=== PATIENT | female | born 1955 | race Hispanic/Latino ===

== ENCOUNTER 2018-10-20 00:49 | Inpatient (IN) | payer MEDICARE ==
[~2018-10-20] VITALS: Ht 152.4 cm; Wt 92.5 kg
[~2018-10-20 00:49] MED LIST: AMIO200T5 PO; ASPI-1005 PO; LISI-613 PO; METO50TA18 PO; RIVA20TA PO; ROSU10TA22 GT
[2018-10-20] MEDS ORDERED: ASPIRIN 325 MG TABLET ONE (01:00)
[2018-10-20 01:21] LABS: BASOPHILS % (AUTO) 0.9 % (0.0-5.0); EOSINOPHILS % (AUTO) 2.3 % (0.0-8.0); HEMATOCRIT 33.6 % (36-48); LYMPHOCYTES % (AUTO) 41.2 % (21.0-51.0); MEAN CORPUSCULAR HEMOGLOBIN 29.8 pg (27.0-33.0); MEAN CORPUSCULAR HGB CONC 33.8 g/dL (32.0-36.0); MEAN CORPUSCULAR VOLUME 87.9 fL (79-99); MONOCYTES % (AUTO) 7.9 % (3.0-13.0); NEUTROPHILS % (AUTO) 47.7 % (40.0-77.0); NUCLEATED RED BLOOD CELLS 0.1 % (0.0-0.19); PLATELET COUNT (AUTO) 186 K/uL (130-400); RED BLOOD CELL COUNT(AUTO) 3.82 MIL/uL (4.00-5.50); RED CELL DISTRIBUTION WIDTH 14.4 % (11.0-15.5); WHITE BLOOD COUNT (AUTO) 4.5 K/uL (4.8-10.8)
[2018-10-20 01:39] LABS: CREATININE 1.5 mg/dL (0.5-1.5); POTASSIUM 3.6 mmol/L (3.5-5.1)
[2018-10-20 01:40] LABS: ALBUMIN 3.5 g/dL (3.5-5.0); BILIRUBIN,TOTAL 0.6 mg/dL (0.2-1.0); TOTAL PROTEIN, SERUM 6.7 g/dL (6.0-8.3)
[2018-10-20] MEDS ORDERED: NITROGLYCERIN 1GM/1 INCH PACKET TD ONE (03:00)
[2018-10-20] MEDS ORDERED: MORPHINE SULFATE 4 MG/1ML SYG IV PRN (04:00)
[2018-10-20] MEDS ORDERED: ONDANSETRON HCL 4 MG/2 ML VIAL IV PRN (04:00)
[2018-10-20] MEDS ORDERED: MORPHINE SULFATE 2 MG/ML 1ML SYG IV PRN (04:00)
[2018-10-20] MEDS ORDERED: ACETAMINOPHEN 325 MG TAB PO PRN (04:00)
[2018-10-20] MEDS: NITROGLYCERIN 1GM/1 INCH PACKET TD SCH ×3 (04:00→20:00)
[2018-10-20] MEDS ORDERED: METOPROLOL TARTRATE 25 MG TAB PO SCH (06:00)
[2018-10-20 06:09] LABS: INR 1.15 (0.85-1.15); PARTIAL THROMBOPLASTIN TIME 30.3 SEC (26.3-35.5)
[2018-10-20] MEDS ORDERED: METOPROLOL TARTRATE 25 MG TAB ONE (06:23)
[2018-10-20] MEDS ORDERED: ASPIRIN 325 MG TABLET PO SCH (09:00)
[2018-10-20] MEDS ORDERED: ENOXAPARIN SODIUM 30 MG/0.3 ML SQ SCH (09:00)
[2018-10-20 10:07] VITALS: BP 159/106
[2018-10-20] MEDS ORDERED: ENOXAPARIN SODIUM 30 MG/0.3 ML SQ ONE (10:07)
[2018-10-20] MEDS ORDERED: ONDA8TAB11 PO (11:09)
[2018-10-20] MEDS ORDERED: METF-444 PO (11:09)
[2018-10-20] MEDS ORDERED: QUET100T PO (11:09)
[2018-10-20] MEDS ORDERED: BUPR-47 PO (11:09)
[2018-10-20] MEDS ORDERED: METO50TA18 PO (11:09)
[2018-10-20] MEDS ORDERED: MECL12.585 PO (11:09)
[2018-10-20 12:02] VITALS: BP 166/77
[2018-10-20] MEDS: AMLODIPINE BESYLATE 2.5 MG TAB PO SCH (13:00)
[2018-10-20] MEDS: AMIODARONE HCL 200 MG TABLET PO SCH (13:26)
[2018-10-20] MEDS: LISINOPRIL 20 MG TABLET PO SCH (13:27)
[2018-10-20] MEDS: ACETAMINOPHEN 325 MG TAB PO PRN (13:28)
[2018-10-20] MEDS: FUROSEMIDE 10 MG/ML 2ML VIAL IV SCH (13:28)
[2018-10-20] MEDS: FAMOTIDINE/PF 20 MG/2 ML VIAL IV SCH ×2 (13:28→20:08)
[2018-10-20 15:19] VITALS: BP 123/56
--- NOTE | 2018-10-20 16:00 | NUR ---
ARRIVAL TO ROOM 228 TRANSFER FROM ROOM 208 RECEIVED REPORT FROM VANDANA SHAFFER. PT ARRIVED VIA NO COMPLAINTS. DENIES CP DENIES SOB DENIES NV. TELE PACK ON PATIENT, CALL LIGHT WITHIN REACH.
[2018-10-20 19:45] VITALS: BP 146/69
[2018-10-20] MEDS ORDERED: QUETIAPINE FUMARATE 25 MG TAB ONE (20:11)
[2018-10-20] MEDS: QUETIAPINE FUMARATE 100 MG TAB PO SCH (20:16)
[2018-10-20 23:30] VITALS: BP 121/54
[2018-10-21] VITALS (10 sets, daily range): BP systolic 101–136; BP diastolic 51–67
[2018-10-21] MEDS: NITROGLYCERIN 1GM/1 INCH PACKET TD SCH ×2 (03:47→12:00)
[2018-10-21 04:00] LABS: HEMATOCRIT 31.7 % (36-48); MEAN CORPUSCULAR HEMOGLOBIN 30.2 pg (27.0-33.0); MEAN CORPUSCULAR HGB CONC 34.7 g/dL (32.0-36.0); NUCLEATED RED BLOOD CELLS 0.2 % (0.0-0.19); PLATELET COUNT (AUTO) 203 K/uL (130-400); RED BLOOD CELL COUNT(AUTO) 3.65 MIL/uL (4.00-5.50); WHITE BLOOD COUNT (AUTO) 4.4 K/uL (4.8-10.8)
[2018-10-21 04:10] LABS: INR 1.06 (0.85-1.15); PARTIAL THROMBOPLASTIN TIME 27.8 SEC (26.3-35.5); PROTHROMBIN TIME 11.1 SEC (9.6-11.6)
[2018-10-21 04:13] LABS: CREATININE 1.5 mg/dL (0.5-1.5); POTASSIUM 3.7 mmol/L (3.5-5.1)
--- NOTE | 2018-10-21 08:00 | NUR ---
ASSESSMENT PT IS AAOX3 DENIES CP DENIES SOB DENIES NV AT THIS TIME, SITTING UPRIGHT IN BED WITH NO COMPLAINTS. NPO STATUS FOR [facility] TODAY. CONSENT IS IN CHART.
[2018-10-21] MEDS: ASPIRIN 81MG TAB.CHEW PO SCH (08:24)
[2018-10-21] MEDS: AMIODARONE HCL 200 MG TABLET PO SCH (08:24)
[2018-10-21] MEDS: LISINOPRIL 20 MG TABLET PO SCH (08:24)
[2018-10-21] MEDS: HYDROCHLOROTHIAZIDE 25 MG TABLET PO SCH (08:24)
[2018-10-21] MEDS: **HM** BUPROPION XL 150MG PO SCH (08:24)
[2018-10-21] MEDS: ATORVASTATIN CALCIUM 20 MG TABLET PO SCH (08:24)
[2018-10-21] MEDS: AMLODIPINE BESYLATE 2.5 MG TAB PO SCH (08:25)
[2018-10-21] MEDS: FAMOTIDINE/PF 20 MG/2 ML VIAL IV SCH ×2 (08:40→20:01)
[2018-10-21] MEDS ORDERED: AMIODARONE HCL 200 MG TABLET PO SCH (09:00)
[2018-10-21] MEDS: FUROSEMIDE 10 MG/ML 2ML VIAL IV SCH (11:27)
--- NOTE | 2018-10-21 12:25 | NUR ---
VICTOR MANUEL Hogue met with pt who states she lives alone, daughter/provider Jada Sloan [phone], to assist with ADLs and home management. Pt has provider 3.5 day, no HH, and no DME. Plan is home at vt Addendum: 10/21/18 at 1230 by FRANCES MCKINNEY Amended: Links added.
[2018-10-21] MEDS ORDERED: IOHEXOL-350 50ML VIAL IV ONE (13:29)
[2018-10-21] MEDS ORDERED: IOHEXOL 350 MG/ML 100ML INFUS..BTL IV ONE (13:29)
[2018-10-21] MEDS ORDERED: SODIUM BICARB 50MEQ 50ML VIAL ONE (13:31)
[2018-10-21] MEDS ORDERED: LIDOCAINE HCL 2% 20ML ONE (13:31)
[2018-10-21] MEDS ORDERED: MEPERIDINE-PF 25 MG/ML SYG ONE ×2 (13:46→14:14)
[2018-10-21] MEDS ORDERED: MIDAZOLAM HCL 1 MG/ML 2ML VIAL ONE ×2 (13:47→14:14)
[2018-10-21] MEDS ORDERED: NITROGLYCERIN 5 MG/ML 10 ML VIAL IV ONE (13:51)
--- NOTE | 2018-10-21 13:59 | NUR ---
DOWN TO DIRECTOR OF SCOUT WORK VIA BED WITH DIRECTOR OF SCOUT WORK STAFF
[2018-10-21] MEDS ORDERED: HYDRALAZINE HCL 20 MG/ML VIAL ONE (14:29)
[2018-10-21] MEDS ORDERED: SODIUM CHLORIDE 0.9% 1000ML 1,000 ML IV SCH (14:35)
[2018-10-21] MEDS ORDERED: GABA-531 PO (15:19)
--- NOTE | 2018-10-21 15:24 | NUR ---
RETURNED FROM TRACK DRESSER PT IS AAOX4 DENIES CP DENIES SOB , NO COMPLAINTS. RIGHT GROIN PERCLOSE SITE WNL, DRESSING INTACT.
[2018-10-21] MEDS: ACETAMINOPHEN 325 MG TAB PO PRN (16:51)
--- NOTE | 2018-10-21 18:00 | NUR ---
RIGHT GROIN WNL BEDREST IN PROGRESS
[2018-10-21] MEDS: QUETIAPINE FUMARATE 100 MG TAB PO SCH (20:01)
[2018-10-21] MEDS: GABAPENTIN 300 MG CAPSULE PO SCH (20:01)
[2018-10-22] VITALS: BP 146/73
[2018-10-22 04:00] VITALS: BP 154/77
[2018-10-22 07:45] VITALS: BP 180/68
[2018-10-22] MEDS: **HM** BUPROPION XL 150MG PO SCH (09:00)
[2018-10-22] MEDS ORDERED: LISINOPRIL 40 MG TABLET PO SCH (09:00)
[2018-10-22] MEDS ORDERED: AMLODIPINE BESYLATE 5 MG TAB PO SCH (09:00)
[2018-10-22] MEDS: ATORVASTATIN CALCIUM 20 MG TABLET PO SCH (09:24)
[2018-10-22] MEDS: AMIODARONE HCL 200 MG TABLET PO SCH (09:24)
[2018-10-22] MEDS: GABAPENTIN 300 MG CAPSULE PO SCH ×2 (09:24→13:55)
[2018-10-22] MEDS: FAMOTIDINE/PF 20 MG/2 ML VIAL IV SCH (09:24)
[2018-10-22] MEDS: HYDROCHLOROTHIAZIDE 25 MG TABLET PO SCH (09:24)
[2018-10-22] MEDS: ASPIRIN 81MG TAB.CHEW PO SCH (09:24)
[2018-10-22 12:03] VITALS: BP 158/73
[2018-10-22] MEDS: FUROSEMIDE 10 MG/ML 2ML VIAL IV SCH (12:18)
[2018-10-22] MEDS ORDERED: HYDR25TA PO (14:36)
[2018-10-22] MEDS ORDERED: AMLO5TAB4 PO (14:36)
[2018-10-22] MEDS ORDERED: LISI40TA4 PO (14:36)
[2018-10-22 15:55] VITALS: BP 159/72
== END 2018-10-22 17:50 | disposition home or self-care (01) | DRG 286 ==
LOC: EDH 00:49 → EDHIP 03:50 → 2BH 10:06 → 2DH 16:24
PROVIDERS: ADMIT Hospitalist; ATTEND Hospitalist
PROC: 4A023N7 Measurement of Cardiac Sampling and Pressure, Left Heart, Percutaneous Approach (ICD-10-PCS; principal; 2018-10-22)
PROC: B2111ZZ Fluoroscopy of Multiple Coronary Arteries using Low Osmolar Contrast (ICD-10-PCS; 2018-10-22)
PROC: B2151ZZ Fluoroscopy of Left Heart using Low Osmolar Contrast (ICD-10-PCS; 2018-10-22)
DX: I20.0 Unstable angina (principal); I50.33 Acute on chronic diastolic (congestive) heart failure; I16.1 Hypertensive emergency; D68.59 Other primary thrombophilia; I13.0 Hypertensive heart and chronic kidney disease with heart failure and stage 1 through stage 4 chronic kidney disease, or unspecified chronic kidney disease; I48.0 Paroxysmal atrial fibrillation; M19.90 Unspecified osteoarthritis, unspecified site; E11.22 Type 2 diabetes mellitus with diabetic chronic kidney disease; E66.01 Morbid (severe) obesity due to excess calories; E78.5 Hyperlipidemia, unspecified; F20.9 Schizophrenia, unspecified; Z96.651 Presence of right artificial knee joint; N18.3 Chronic kidney disease, stage 3 (moderate); Z68.39 Body mass index [BMI] 39.0-39.9, adult; Z79.899 Other long term (current) drug therapy; Z86.711 Personal history of pulmonary embolism; Z79.01 Long term (current) use of anticoagulants; Z86.718 Personal history of other venous thrombosis and embolism; Z88.0 Allergy status to penicillin; Z90.710 Acquired absence of both cervix and uterus; Z98.84 Bariatric surgery status
CPT/HCPCS: 36415; 71045; 80048; 80053; 82550; 83880; 84484; 85025; 85027; 85610; 85730; 93005; 93458; 99156; 99157; C1760; C1894; G0378; J0360; J1650; J1940; J2175; J2250; J3490; J7030; Q9967